=== PATIENT | female | born 1960 | race Caucasian/White ===

== ENCOUNTER 2017-08-08 11:32 | Inpatient (IN) | payer MEDICARE, MEDICAID ==
[2017-08-07 11:40] VITALS: BMI 18.3
[2017-08-08] MEDS ORDERED: Fentanyl 100 MCG/2 ML VIAL ONE ×2 (13:29→15:04)
[2017-08-08] MEDS ORDERED: CEFAZOLIN/Water 2 GM/20 ML SYRINGE ONE (13:32)
[2017-08-08] MEDS ORDERED: Propofol 200 MG/20 ML VIAL ONE (13:48)
[2017-08-08] MEDS ORDERED: Lidocaine 1% PF 5 ML VIAL ONE (13:48)
[2017-08-08] MEDS ORDERED: ePHEDrine/0.9% NaCl/PF SYRINGE 50 mg/10 ml ONE (13:48)
[2017-08-08] MEDS ORDERED: Ondansetron HCl/PF 4 MG/2 ML Vial IVP PRN (14:56)
[2017-08-08] MEDS ORDERED: Promethazine HCl 25 MG/ML VIAL SLOW IVP PRN (14:56)
[2017-08-08] MEDS ORDERED: Promethazine HCl 25 MG/ML VIAL IM PRN (14:56)
[2017-08-08] MEDS ORDERED: hydrOXYzine 25 MG TAB PO PRN (16:06)
[2017-08-08] MEDS: ALPRAZolam 0.5 MG TAB PO SCH (17:44)
[2017-08-08] MEDS: Sodium Chloride 0.9% 1,000 ML IV SCH ×2 (17:44)
[2017-08-08] MEDS: HYDROcodone/Acetaminophen 10/325 mg Tablet PO SCH ×2 (17:44→23:03)
--- NOTE | 2017-08-08 17:48 | OP ---
DATE OF PROCEDURE: 08/08/2017 GI ENDOSCOPY NOTE SURGEON: Bang Fernandez M.D. FRONT DESK AUXILIARY SURGEON: None. PROCEDURE: Esophagogastroduodenoscopy with percutaneous endoscopic gastrostomy placement and J tube extension placement. INDICATIONS: 1. Gastroparesis. 2. Weight loss. 3. Vomiting. MEDICATIONS: Ancef 2 grams IV for keena-procedural prophylaxis. MEDICATIONS: See anesthesia record. FINDINGS: After discussion of the risks, benefits and alternatives of the procedure, informed conse nt was obtained and witnessed. Pre-endoscopic cardiopulmonary examination was satisfactory. Timeou t was performed before sedation was achieved. Sedation was achieved with title i instructional assistant in e endoscopy unit. A Pentax adult upper endoscope was placed into the oropharynx and passed through the cricopharyngeus under direct visualization. The esophageal mucosa appeared normal throughout wi th a normal-appearing Z-line. The endoscope was advanced into the stomach. Forward and retroflexed views of the entire gastric mucosa were obtained. The gastric mucosa appeared normal. The endosco pe was then passed through the pylorus and into the first and second portions of the duodenum which appeared normal. The endoscope was then withdrawn back into the gastric lumen and a suitable site f or PEG placement was found in the left upper quadrant using 1:1 pressure and transillumination metho d. At this point, the site was marked, then it was prepped and draped in sterile fashion. It was a nesthetized with subcutaneous lidocaine. A 1 cm vertical incision was made at the site and then the introducer needle and catheter were introduced transcutaneously into the gastric lumen. The cathet er was grasped via snare through the endoscope. The wire was placed through the catheter and graspe d by the snare and then withdrawn out of the mouth. A 20-Eritrean traction PEG tube was affixed to e wire and then pulled through into place in the standard fashion without difficulty. The external bumper clamp and ports were then affixed to the tube. At this point, an 8.5 Eritrean J-extension was passed through the main portal of the PEG tube. A Pentax adult colonoscope was used to re-intubate the patient. A rat tooth forceps was used to drag the jejunal tube down about 30 cm past the pyloru s into what as the proximal jejunum and the splenic clip was used to clip the suture wire at the end of the tube in place in the proximal jejunum. The colonoscope was then completely removed without incident and the procedure was complete. The patient tolerated the procedure well. There were no i mmediate post-procedure complications. IMPRESSION: Successful esophagogastroduodenoscopy with percutaneous endoscopic gastrostomy placemen t and placement of J tube extension, external bumper at 3 cm. RECOMMENDATIONS: Admit for overnight observation, dietitian consultation, and PEG tube care landen loya
[2017-08-08] MEDS: PROVENTIL INHALER 6.7 G (200 INHALATIONS) INH SCH (18:13)
--- NOTE | 2017-08-08 22:14 | HP ---
REASON FOR ADMISSION: Overnight observation following PEG tube placement with J extension. HISTORY OF PRESENT ILLNESS: Sarah Webb is a 56-year-old woman whom I have been following [facility]. I met her in 2014 for the workup of weight loss, diarrhea, nausea, vomiting, and abdomina l pain. At that time in April 2015, she was found to have moderate gastritis and a gastric ulcer in the antrum with biopsies positive for H. pylori gastritis. We successfully eradicated H. pylori and by followup EGD in 06/2015. EGD was normal and biopsies were negative for H. pylori. However, she continues to have unchanged epigastric pain over the past couple of years off and on. She has had worsening symptoms of continued abdominal pain and vomiting, and weight loss. We repeated EGD in and this showed a moderate amount of retained food in the stomach, but normal gastric mucosa. We ordered a gastric emptying scan, but she was unable to tolerate it at that time. She was hospit alized in late November and early December here with continued weight loss and vomiting. She was seen by Dr. Patrick. CTA, stool studies, gastrin level, and 5-HIAA were all normal at that time. In [facility], we had been trialing her on Reglan, but she was taken off at that time due to what appears to h ave been the start of Tardive dyskinesia. Those symptoms thankfully resolved after discontinuing th e Reglan, but she has not been able to be on any other therapy for gastroparesis. More recently, I sent her down for a second opinion at [facility] with Dr. Luis. Dr. Luis agreed with diagnosis of gastroparesis and actually was able to obtain a formal gastric emptying milagros dy, which was markedly abnormal. Dr. Luis recommended that the patient have placement of a PEG tub e preventing with J extension for feeds. The patient was unable to get this done. She has been rudi k and forth between here and [place], but she has finely back here in town and was ready to get t his done, so she presented for PEG tube placement today. PEG placement with J extension was performed earlier today and was successful with no complications. The patient is now being admitted for overnight observation and dietitian consultation as well as teaching over care of the PEG tube. REVIEW OF SYSTEMS: Full review of systems including constitutional, head, eyes, ears, nose, throat, GI, , cardiovascular, respiratory, musculoskeletal, and neurologic systems is negative except as noted in the HPI. PAST MEDICAL HISTORY: COPD, depression/anxiety, TIA, hysterectomy, back surgery, cholecystectomy in 1978 for gallstones, tobacco abuse, gastroparesis, H. pylori gastritis successfully treated in 2014 . ALLERGIES: ACETAMINOPHEN, BACITRACIN, CODEINE, DOXYCYCLINE, DIPHENHYDRAMINE, HYDROCODONE, HYDROCORT ISONE, IBUPROFEN, LATEX, IODINE, NEOMYCIN, and POLYMYXIN B. MEDICATIONS: Alprazolam 0.5 mg q.6 hours, hydrocodone/acetaminophen 10/325 mg 1 tablet q.i.d., hydr oxyzine 25 mg p.o. t.i.d. p.r.n., albuterol inhaler q.i.d., omeprazole 40 mg daily, buspirone 15 mg b.i.d., atorvastatin 40 mg p.o. at bedtime, gabapentin 300 mg t.i.d., aspirin 81 mg daily, chlorprom azine 25 mg p.o. t.i.d., varenicline tartrate 1 mg p.o. b.i.d., Flovent 50 mcg inhaled daily. Earli er today she received 2 grams of IV Ancef as periprocedural prophylaxis for PEG tube placement. SOCIAL HISTORY: The patient is trying to quit smoking. No alcohol abuse. FAMILY HISTORY: Noncontributory. PHYSICAL EXAMINATION: GENERAL: Cachectic 56-year-old woman lying in bed comfortably after PEG tube placement, in no acute distress. SKIN: No jaundice, no rashes were palpable. EYES: No scleral icterus. Extraocular movements are intact. ENT: Mucous membranes moist, no oral lesions. LYMPH: No submandibular or supraclavicular lymphadenopathy. THYROID: Nontender to palpation. HEART: Regular rate and rhythm. LUNGS: Clear to auscultation bilaterally. ABDOMEN: Flat. Bowel sounds present. New PEG tube is in place, site appears good nontender to pal pation, no bleeding or oozing from the PEG site. EXTREMITIES: No peripheral edema. VESSELS: Radial pulses 2+ bilaterally. NEUROLOGICAL: Cranial nerves II-XII intact bilaterally. No focal deficits. ASSESSMENT AND PLAN: 1. Gastroparesis, now status post placement of PEG tube with J extension earlier today. 2. Weight loss, secondary to gastroparesis. 3. Vomiting, secondary to gastroparesis. We have ordered dietitian consultation for their assistan ce in recommendations on feeding formulations. The J extension will need to be flushed frequently t o keep her from getting clogged. We will combine tomorrow to check on PEG tube placement. Hopefull y, be able to discharge tomorrow.
[2017-08-08] MEDS: Varenicline Tartrate 0.5 MG TAB PO SCH (22:53)
[2017-08-08] MEDS: chlorproMAZINE HCl 25 MG TAB PO SCH (22:55)
[2017-08-08] MEDS: Gabapentin 300 MG CAP PO SCH (22:55)
[2017-08-08] MEDS: busPIRone HCl 10 MG TAB PO SCH (22:55)
[2017-08-08] MEDS: Atorvastatin Calcium 40 MG TAB PO SCH (22:55)
[2017-08-09] MEDS: ALPRAZolam 0.5 MG TAB PO SCH ×4 (00:07→18:20)
[2017-08-09] MEDS: Sodium Chloride 0.9% 1,000 ML IV SCH ×4 (06:16→20:38)
[2017-08-09] MEDS ORDERED: Fluticasone Propionate HFA 44 MCG AER INH SCH (07:00)
[2017-08-09] MEDS: PROVENTIL INHALER 6.7 G (200 INHALATIONS) INH SCH ×4 (07:48→18:42)
[2017-08-09] MEDS: Mometasone 100 MCG HFA INHALER INH SCH ×2 (07:50→18:43)
[2017-08-09] MEDS: Varenicline Tartrate 0.5 MG TAB PO SCH ×2 (09:12→20:37)
[2017-08-09] MEDS: chlorproMAZINE HCl 25 MG TAB PO SCH ×3 (09:12→20:36)
[2017-08-09] MEDS: HYDROcodone/Acetaminophen 10/325 mg Tablet PO SCH ×4 (09:12→20:37)
[2017-08-09] MEDS: Gabapentin 300 MG CAP PO SCH ×3 (09:12→20:36)
[2017-08-09] MEDS: busPIRone HCl 10 MG TAB PO SCH ×2 (09:12→20:35)
--- NOTE | 2017-08-09 15:44 | PRG ---
DATE OF SERVICE: 08/09/2017 SUBJECTIVE: Ms. Webb is feeling pretty well. No pain to the PEG tube site, no significant bleed ing or drainage from the PEG site. She was seen by a dietitian earlier today and recommendations fo r tube feeds made. It was recommended that tube feeds be started continuously at 20 mL per hour, an d advance to 50 mL per hour goal rate. These are just now been started. Ms. Webb has no complai nts. She is tolerating clear liquids just fine. PHYSICAL EXAMINATION: VITAL SIGNS: Temperature 98.3, pulse 60, blood pressure 105/68, 96% oxygen saturation on room air. GENERAL: No acute distress. HEART: Regular rate and rhythm. LUNGS: Clear to auscultation bilaterally. ABDOMEN: Soft and nontender to palpation. PEG site looks good. Some mild oozing which is way down from the PEG site. EXTREMITIES: No peripheral edema. ASSESSMENT AND PLAN: 1. Gastroparesis. 2. Weight loss. 3. Status post percutaneous endoscopic gastrostomy tube placement with a jejunal extension without complication yesterday on 08/08/2017. We will follow dietary recommendations on tube feeds and grad ual advancement. The patient will have tube feeds advanced overnight. Anticipate she will be able to be discharged home tomorrow.
[2017-08-09] MEDS: Atorvastatin Calcium 40 MG TAB PO SCH (20:35)
[2017-08-10] MEDS: ALPRAZolam 0.5 MG TAB PO SCH ×5 (00:05→23:19)
[2017-08-10] MEDS: PROVENTIL INHALER 6.7 G (200 INHALATIONS) INH SCH ×4 (07:05→19:24)
[2017-08-10] MEDS: Mometasone 100 MCG HFA INHALER INH SCH ×2 (07:07→19:26)
[2017-08-10] MEDS: chlorproMAZINE HCl 25 MG TAB PO SCH ×3 (09:26→21:34)
[2017-08-10] MEDS: Varenicline Tartrate 0.5 MG TAB PO SCH ×2 (09:26→21:35)
[2017-08-10] MEDS: Gabapentin 300 MG CAP PO SCH ×3 (09:26→21:35)
[2017-08-10] MEDS: busPIRone HCl 10 MG TAB PO SCH ×2 (09:26→21:34)
[2017-08-10] MEDS: HYDROcodone/Acetaminophen 10/325 mg Tablet PO SCH ×5 (09:27→21:35)
[2017-08-10] MEDS: Sodium Chloride 0.9% 1,000 ML IV SCH ×4 (12:18→23:20)
--- NOTE | 2017-08-10 15:19 | PRG ---
DATE OF SERVICE: 08/10/2017 SUBJECTIVE: Ms. Webb is doing fine. No nausea or vomiting. Abdominal pain is minimal. No dis comfort at the PEG site. She is tolerating the tube feeds now at 50 mL per hour without difficulty. OBJECTIVE: VITAL SIGNS: Temperature 97.8, pulse 75, blood pressure 90/56, 96% oxygen saturation on room air. GENERAL: No acute distress. HEART: Regular rate and rhythm. LUNGS: Clear to auscultation bilaterally. ABDOMEN: Flat, nontender to palpation. PEG site looks good. EXTREMITIES: No peripheral edema. ASSESSMENT AND PLAN: 1. Gastroparesis, status post PEG tube placement with J extension 2 days ago on 08/08/2017. 2. Weight loss secondary to gastroparesis. 3. Vomiting secondary to gastroparesis, stable. Ms. Webb is tolerating the Jevity 1.5 at 50 mL per hour. I would really like her to be able to do bolus feeds at home, so she is not tied to a pum p, and I think she will tolerate this just fine. I have re-written tube feed ordered for bolus feed s 1 can of Jevity 1.5 three times per day. We will see how she tolerates this. There are some logi stical issues with discharging her prior to arrangements being made for tube feeding supplies, etc. which can evidently only happened on Saturday, so probably plan to discharge her on Saturday.
[2017-08-10] MEDS: Enoxaparin Sodium 40 MG/0.4 ML SYRINGE SC SCH (21:34)
[2017-08-10] MEDS: Atorvastatin Calcium 40 MG TAB PO SCH (21:34)
[2017-08-11] MEDS: ALPRAZolam 0.5 MG TAB PO SCH ×3 (05:50→17:52)
[2017-08-11] MEDS: PROVENTIL INHALER 6.7 G (200 INHALATIONS) INH SCH ×4 (07:13→18:26)
[2017-08-11] MEDS: Mometasone 100 MCG HFA INHALER INH SCH ×2 (07:15→18:28)
[2017-08-11] MEDS: chlorproMAZINE HCl 25 MG TAB PO SCH ×3 (08:39→20:58)
[2017-08-11] MEDS: Gabapentin 300 MG CAP PO SCH ×3 (08:40→21:00)
[2017-08-11] MEDS: busPIRone HCl 10 MG TAB PO SCH ×2 (08:40→20:56)
[2017-08-11] MEDS: Varenicline Tartrate 0.5 MG TAB PO SCH ×2 (08:40→20:58)
[2017-08-11] MEDS: HYDROcodone/Acetaminophen 10/325 mg Tablet PO SCH ×4 (08:41→20:59)
[2017-08-11] MEDS: Sodium Chloride 0.9% 1,000 ML IV SCH ×2 (11:35)
[2017-08-11] MEDS ORDERED: Ondansetron HCl/PF 4 MG/2 ML Vial SLOW IVP PRN (14:55)
[2017-08-11] MEDS: Atorvastatin Calcium 40 MG TAB PO SCH (20:56)
[2017-08-11] MEDS: Enoxaparin Sodium 40 MG/0.4 ML SYRINGE SC SCH (21:00)
--- NOTE | 2017-08-11 21:35 | PRG ---
DATE OF SERVICE: 08/11/2017 SUBJECTIVE: Ms. Webb is feeling okay. Earlier today, we trialed bolus tube feed of whole can of Jevity 1.5. With this, she says she got acutely nauseated. She had had some soup around the same time and she ended up throwing up some of that. She is currently pain free and nausea free again. OBJECTIVE: VITAL SIGNS: Temperature 97.9, pulse 76, blood pressure 99/61, 97% oxygen saturation on room air. GENERAL: No acute distress. HEART: Regular rate and rhythm. LUNGS: Clear to auscultation bilaterally. ABDOMEN: Soft and nontender to palpation. PEG site looks good. EXTREMITIES: No peripheral edema. ASSESSMENT AND PLAN: 1. Gastroparesis, status post PEG tube placement with J extension 3 days ago on 08/08/2017. 2. Weight loss secondary to gastroparesis. 3. Vomiting secondary to gastroparesis, stable. I have asked the nurse to go ahead and just admini ster a half a can of Jevity for her next scheduled bolus feeding. We will see how she tolerates kari t. She is not going to need to meet all of her caloric needs with tube feeds as she is still able t o take in food by mouth. Ideally, she would be able to get the equivalent of 3 cans per day. Anticipate discharge from the hospital tomorrow.
[2017-08-12] MEDS: Sodium Chloride 0.9% 1,000 ML IV SCH ×4 (00:19→14:43)
[2017-08-12] MEDS: ALPRAZolam 0.5 MG TAB PO SCH ×4 (00:30→17:50)
[2017-08-12] MEDS: Mometasone 100 MCG HFA INHALER INH SCH ×2 (06:56→18:37)
[2017-08-12] MEDS: PROVENTIL INHALER 6.7 G (200 INHALATIONS) INH SCH ×4 (06:56→18:34)
[2017-08-12] MEDS: Gabapentin 300 MG CAP PO SCH ×2 (08:37→15:23)
[2017-08-12] MEDS: HYDROcodone/Acetaminophen 10/325 mg Tablet PO SCH ×3 (08:37→17:50)
[2017-08-12] MEDS: busPIRone HCl 10 MG TAB PO SCH (08:37)
[2017-08-12] MEDS: Varenicline Tartrate 0.5 MG TAB PO SCH (08:38)
[2017-08-12] MEDS: chlorproMAZINE HCl 25 MG TAB PO SCH ×2 (08:42→15:23)
--- NOTE | 2017-08-12 11:35 | PRG ---
DATE OF SERVICE: 08/12/2017 SUBJECTIVE: Ms. Webb has not really been able to tolerate bolus feeds through her jejunostomy tu be. She gets acutely nauseated and had some vomiting with attempts at this late yesterday. She is able to tolerate continuous feeds at 50 mL per hour just fine. She is desiring to go home today. S he has no other complaints. OBJECTIVE: VITAL SIGNS: Temperature 98.0, pulse 75, blood pressure 99/64, 97% oxygen saturation on room air. GENERAL: In no acute distress. HEART: Regular rate and rhythm. LUNGS: Clear to auscultation bilaterally. ABDOMEN: Flat and nontender. PEG site looks good. EXTREMITIES: No peripheral edema. ASSESSMENT AND PLAN: 1. Gastroparesis, status post placement of PEG tube with J extension on 08/12/2017. 2. Weight loss, secondary to severe gastroparesis. 3. Nausea and vomiting, secondary to severe gastroparesis. 4. Malnutrition. Ms. Bonds seems to be able to tolerate continuous tube feeds just fine at 50 mL per hour, but has n ot tolerated the bolus feedings. I think the best plan for her would be to have continuous feedings through the night at 50 mL per hour. She is really not able to reliably tolerate oral intake, cert ainly not meet all of her nutritional needs that way, so it is going to be necessary to continue the continuous tube feeds. That being said, as her symptoms do wax and wane somewhat I do want her to continue with careful oral intake on those days that she feels she can handle it. We will plan for hospital discharge today. Follow up in our clinic in the next 1-2 weeks. I instru cted her on the venting port for the gastrostomy tube, which will hopefully be able to palliate her symptoms as needed. Also, instructed her to make sure she is flushing the jejunostomy tube regularl y with 30 mL of water before and after feeds and a couple of other times throughout the day.
--- NOTE | 2017-08-12 14:32 | PQF ---
CLINICAL DOCUMENTATION IMPROVEMENT CLARIFICATION FORM: ICD-10 Updated PLEASE DO AN ADDENDUM TO THE PROGRESS NOTE WITH ANY DOCUMENTATION UPDATES OR ADDITIONS AND CARRY THROUGH TO DC SUMMARY. THANK YOU. Date: 08/12/17 ATTN: DR. GIVENS Please exercise your independent, professional judgment in responding to the clarification form. Clinical indicators are provided on the bottom of this form for your review Please check appropriate box(s): [ ] Protein Calorie Malnutrition: [ ] Mild [x ] Moderate [ ] Severe [ ] Other Malnutrition (please specify) __ [ ] Underweight without malnutrition [ ] Cachexia [ ] Other diagnosis [ ] Unable to determine In addition, please specify: Present on Admission (POA): [ x ] Yes [ ] No [ ] Unable to determine CLINICAL INDICATORS - SIGNS / SYMPTOMS / LABS PROGRESS NOTE 08/12: "WEIGHT LOSS SECONDARY TO SEVERE GASTROPARESIS" DIETARY NOTE 08/09: "SHE REPORTS WEIGHT LOSS FROM ~120'S OVER THE PAST 6 MONTHS AND ~130'S OVER THE PAST 1 YEAR. SHE REPORTS VOMITING WITH ALL PO INTAKE, EVEN LIQUIDS." "KCAL AND PROTEIN REQUIREMENTS NOT MET." "CLAVICULAR MUSCLE WASTING NOTED" BMI 18.3 *NO ALBUMIN AVAILABLE" RISKS: SEVERE GASTROPARESIS TREATMENT: PEG PLACEMENT NUTRITIONAL SUPPLEMENTS PER TUBE FEEDING (This form is maintained as a part of the permanent medical record) 2014 [employer] All Rights Reserved [email or web address] Office: [phone] [facility]ATRIC CENTERAle
[2017-08-12 16:40] VITALS: BP 105/63; TEMP 97.6
== END 2017-08-12 19:20 | disposition home or self-care (01) | DRG 392 ==
LOC: SDC 11:32 → SURG A 14:56 → OBSVTOIN 08-11 12:33
PROVIDERS: ADMIT Internal Medicine; ATTEND Internal Medicine
PROC: 0DH63UZ Insertion of Feeding Device into Stomach, Percutaneous Approach (ICD-10-PCS; principal; 2017-08-11)
DX: K31.84 Gastroparesis (principal); E44.0 Moderate protein-calorie malnutrition; Z68.1 Body mass index [BMI] 19.9 or less, adult; F32.9 Major depressive disorder, single episode, unspecified; R11.2 Nausea with vomiting, unspecified; J44.9 Chronic obstructive pulmonary disease, unspecified; F41.9 Anxiety disorder, unspecified; F17.210 Nicotine dependence, cigarettes, uncomplicated; Z86.73 Personal history of transient ischemic attack (TIA), and cerebral infarction without residual deficits
CPT/HCPCS: 94664; 96374; J1650; J2001; J2704; J3010; Q0161

== ENCOUNTER 2017-09-17 12:44 | Day surgery (SDC) | payer MEDICARE, MEDICAID ==
[2017-09-16 15:48] VITALS: BMI 18.3
[2017-09-17] MEDS ORDERED: PHENYLEPHRINE-NS 100 MCG/ML 10 ML SYRINGE ONE (14:27)
[2017-09-17] MEDS ORDERED: Lidocaine 1% PF 5 ML VIAL ONE (14:27)
[2017-09-17] MEDS ORDERED: Propofol 200 MG/20 ML VIAL ONE (14:27)
--- NOTE | 2017-09-17 21:56 | OP ---
DATE OF PROCEDURE: 09/17/2017 SURGEON: Bang Fernandez M.D. AUTOMOBILE SERVICE STATION ATTENDANT SURGEON: None. PROCEDURE: Esophagogastroduodenoscopy, diagnostic. INDICATIONS: 1. Nausea and vomiting. 2. Abdominal pain. 3. Gastroparesis. 4. Possible PEG tube malfunction. The patient has a PEG tube with jejunal extension recently placed , now complaining of abdominal pain and malpositioning of the J tube. MEDICATIONS: See anesthesia record. FINDINGS: After discussion of the risks, benefits and alternatives of the procedure, informed consen t was obtained and witnessed. Pre-endoscopic cardiopulmonary examination was satisfactory. Timeout was performed before sedation was achieved. Sedation was achieved with anesthesia assistance in the endoscopy unit. A Pentax adult upper endoscope was placed into the oropharynx and passed through the cricopharyngeus under direct visualization. The esophageal mucosa appeared normal throughout with a normal-appearing Z-line. The endoscope was advanced forward into the stomach. Forward and retrofle xed views of the entire gastric mucosa were obtained. The gastric mucosa appeared normal. The inter nal bumper of the patient's PEG tube appears in good position. The underlying mucosa was examined. There is no associated mucosal abnormality, no associated ulceration. The jejunal extension was seen coming in through the internal bumper and does indeed coiled within the stomach. However, the jejun al extension does pass beyond the pylorus. The endoscope was passed beyond the pylorus alongside the jejunal extension and into the third portion of the duodenum where the tip of the jejunal tube was f ound to be lying. This has indeed come back a bit from when the jejunal extension was placed. The s uture affixed to the end of the J-tube appears to have broken and no longer is a loop but remains aff ixed to the tube. I used a Hemoclip to clip the suture in place in the third portion of the duodenum . The upper endoscope was then completely withdrawn and the patient allowed to recover. The patient tolerated the procedure well. There were no immediate post-procedure complications. IMPRESSION: 1. Internal PEG bumper looks good, with no associated mucosal abnormality or ulceration. 2. Jejunal extension tube coiled within the stomach, but still passing through the pylorus and into the third portion of the duodenum. Clipped in place. 3. Otherwise, normal esophagogastroduodenoscopy. RECOMMENDATIONS: 1. Resume tube feedings as before. 2. Resume daily PPI. 3. Follow up with primary care physician for urinary complaints.
--- NOTE | 2017-09-18 00:43 | CON ---
DATE OF CONSULTATION: 09/17/2017 CONSULTING PHYSICIAN: Dr. Bang Fernandez. CONSULTED PHYSICIAN: Dr. Bony Aponte. REASON FOR CONSULTATION: Urinary retention. HISTORY OF PRESENT ILLNESS: Ms. Webb is a 56-year-old white female who is coming in today for an EGD secondary to PEG tube placement with jejunal extension. She underwent her procedure with Dr. Morteza pryor, which went uneventfully. However, the patient was not able to urinate after the procedure. On di scussing with the patient, she states that she has had a long history of being unable to urinate sinc e her original PEG tube placement and stomach issues which began around 2014. She is able to urinate some, but has a great deal of difficulty with hesitancy, weak stream and feelings of incomplete empt padmini. She denies histories of recurrent urinary tract infections, hematuria, previous urologic surge rc or trauma to the region. She has a history of nephrolithiasis many years ago and has a histo ry of infections while she was , but nothing recent. ALLERGIES: 1. TYLENOL. 2. BACITRACIN. 3. CODEINE. 4. DOXYCYCLINE. 5. DIPHENHYDRAMINE. 6. HYDROCODONE. 7. HYDROCORTISONE. 8. IBUPROFEN. 9. LATEX. 10. IODINE. 11. NEOMYCIN. 12. POLYMYXIN. PAST MEDICAL HISTORY: 1. COPD. 2. Depression with anxiety. 3. Transient ischemic attack. 4. Hysterectomy. 5. Back surgery. 6. Cholecystectomy. 7. Gastroparesis. 8. Helicobacter pylori gastritis. PAST SURGICAL HISTORY: PEG tube placement and cholecystectomy. HOME MEDICATIONS: 1. Alprazolam. 2. [place]. 3. Hydroxyzine. 4. Albuterol. 5. Protonix. 6. BuSpar. 7. Atorvastatin. 8. Neurontin. 9. Aspirin. 10. Chlorpromazine. 11. Varenicline. 12. Flovent. FAMILY HISTORY: Noncontributory. SOCIAL HISTORY: The patient is currently trying to quit smoking. She denies alcohol abuse or illici t drug use. REVIEW OF SYSTEMS: A 12-point review of systems is unremarkable other than what was commented on the HPI. Specifically, she does have the GI issues with recent history of constipation and diarrhea. S he otherwise denies any symptoms of urinary tract infections, fevers or chills or malaise. She has t he above-mentioned urinary problems. PHYSICAL EXAMINATION: VITAL SIGNS: Temperature 99.2, pulse 96, respirations 20, blood pressure 103/69, saturation 98% on r oom air. GENERAL: No apparent distress, communicative and alert. Appears stated age. HEENT: Normocephalic, atraumatic. Sclerae are nonicteric. Pupils are symmetric and round. Trachea midline. CARDIOVASCULAR: Regular rate and rhythm. Normal S1 and S2. Symmetric pulses. CHEST: Clear anteriorly. No increased work of breathing. Symmetric expansion of lungs. ABDOMEN: Soft, nontender, nondistended. PEG tube is in place. No organomegaly. No rebound or guar ding tenderness. SKIN: Warm, dry. No rashes or lesions. Good turgor. EXTREMITIES: No clubbing, cyanosis or edema. MUSCULOSKELETAL: No joint deformities or joint erythema noted. Full range of motion. NEUROLOGIC: Cranial nerves II-XII appear grossly intact. No focal motor or sensory deficits identif ied. PROCEDURE: The nursing staff had a significant amount of difficulty inserting a Cadena catheter at my request. I came in and had the patient going to the laboring type position with her knees to her est, this opened up her urethra much easier to identify and we were able to pass the catheter into th e urethra with return of clear urine, 500 mL of urine was drained, 10 mL of sterile water placed into the balloon. This was secured to the patient's leg with a StatLock. ASSESSMENT AND PLAN: A 56-year-old white female with urinary retention of unexplained etiology. It is possible that she may have a neurologic source of why she is not able to urinate properly, possibl y secondary to previous pelvic surgery or possibly due to some other condition which is not yet expla ined. I would think she probably will require urodynamics to assess whether or not she has an obstru ctive etiology or has a neurogenic type bladder. She should have her constipation managed aggressive ly to minimize her risk for urinary problems in the future as constipation can greatly exacerbate uri nary retention. We will plan to send her home today with her catheter to a leg bag and she can follo w up with me in the office next week at which time we will plan for a voiding trial and possibly set her up for urodynamics. I will cover her with 24 hours of Cipro to prevent urinary tract infection d ue to the multiple attempts of the catheter placement.
== END 2017-09-17 20:00 | disposition home or self-care (01) ==
LOC: ENDO/OP 12:44
PROVIDERS: ATTEND Internal Medicine
PROC: 0DJ08ZZ Inspection of Upper Intestinal Tract, Via Natural or Artificial Opening Endoscopic (ICD-10-PCS; principal; 2017-09-17)
DX: K94.23 Gastrostomy malfunction (principal); K31.84 Gastroparesis; J44.9 Chronic obstructive pulmonary disease, unspecified; F17.200 Nicotine dependence, unspecified, uncomplicated; Z91.041 Radiographic dye allergy status; Z91.040 Latex allergy status; Z88.1 Allergy status to other antibiotic agents; Z88.5 Allergy status to narcotic agent; Z88.6 Allergy status to analgesic agent; Z88.8 Allergy status to other drugs, medicaments and biological substances; Z98.1 Arthrodesis status; Z90.710 Acquired absence of both cervix and uterus; Z90.49 Acquired absence of other specified parts of digestive tract; Z98.890 Other specified postprocedural states; Z86.73 Personal history of transient ischemic attack (TIA), and cerebral infarction without residual deficits
CPT/HCPCS: J2001; J2704

== ENCOUNTER 2017-10-23 10:22 | Day surgery (SDC) | payer MEDICARE, MEDICAID ==
[2017-10-22 13:26] VITALS: BMI 18.3
[2017-10-23] MEDS ORDERED: CEFAZOLIN/Water 2 GM/20 ML SYRINGE ONE (10:55)
[2017-10-23] MEDS ORDERED: Ketorolac Tromethamine 30 MG/ML VIAL ONE (12:33)
[2017-10-23] MEDS ORDERED: Propofol 200 MG/20 ML VIAL ONE (14:23)
[2017-10-23] MEDS ORDERED: Ondansetron HCl/PF 4 MG/2 ML Vial ONE (14:23)
[2017-10-23] MEDS ORDERED: Lidocaine 1% PF 5 ML VIAL ONE (14:23)
--- NOTE | 2017-10-23 14:28 | OP ---
DATE OF PROCEDURE: 10/23/2017 SURGEON: Bang Fernandez M.D. ADULT CARE PROVIDER SURGEON: None. PROCEDURE: Esophagogastroduodenoscopy with PEG tube revision and jejunostomy extension placement. INDICATION: 1. PEG tube malfunction, jejunal extension is clogged. 2. Gastroparesis. MEDICATIONS: 1. See Anesthesia record. 2. Ancef 2 grams IV as periprocedural prophylaxis. FINDINGS: After discussion of the risks, benefits, and alternatives of the procedure, informed consent was obtained and witnessed. Pre-endoscopic cardiopulmonary examination was satisfactory. Timeout was performed before sedation was achieved. Sedation was achieved with Anesthesia assistance in the endoscopy unit. The patient was placed in the supine position. A Pentax adult colonoscope was used for this procedure as jejunal extension placement was planned. The colonoscope was inserted into the mouth beyond the esophagus and into the stomach and first portion of the small intestine. Examination demonstrated no abnormalities. Her existing PEG tube was in good position with no abnormalities at the internal bumper site. Her jejunal extension was looped around in the fundus of the stomach with the tip of the jejunal extension in the gastric antrum. It was therefore decided to go ahead and proceed with PEG replacement. The existing 20-[place] PEG tube was removed by traction along with the clogged jejunal extension. The site was prepped and draped in a sterile fashion. We introduced the introducer needle and catheter through her existing PEG site without difficulty. The needle was removed and a wire was passed through the catheter. The wire was grasped with a snare through the endoscope without difficulty. The endoscope was then removed along with the wire through the mouth, then a new 24-[place] traction PEG tube was affixed to the wire and pulled through into position in the usual fashion without difficulty. The internal bumper was found to be in good position upon reexamination with the endoscope. The external bumper was placed at 3 cm. The clamp was affixed to the tube and the tube was then shortened. At this point, we proceeded with the next part of the procedure, which was placement of a jejunal extension, a 12-[place] jejunal extension tube was inserted through the PEG tube. We initially attempted to pull the J tube through the pylorus using a Resolution Hemoclip; however, the Hemoclip was unable to provide enough force to bring the tube down into the small bowel. The clip was removed and we utilized a rat tooth forceps to grasp the end of the jejunal tube. We were then able to advance the tip of the jejunal tube beyond the pylorus and well into the small bowel beyond the duodenum and into the proximal jejunum. Unfortunately, during all this process, the suture loop at the end of the jejunal tube was cut and subsequently fell off. We were therefore unable to clip the jejunal tube in place. However, with careful removal of the endoscope, we were able to completely withdraw the endoscope back into the gastric lumen without bringing the jejunal tube back. There was no fundic loop visualized. The J-extension appeared to be in proper position. At this point, the endoscope was completely removed and the patient allowed to recover. The patient tolerated the procedure well. There were no immediate post-procedure complications. IMPRESSION: 1. Successful placement of new 24-[place] traction PEG tube at the existing site , with external bumper at 3 cm. 2. Successful placement of a 12-[place] jejunal extension tube through the PEG tube, with tip located in the proximal jejunum. Unable to clip the jejunal extension in place due to broken suture. RECOMMENDATIONS: 1. Discharge home. 2. Resume tube feedings and flushes as before. 3. Follow up in clinic in the next 2-3 weeks. JD
== END 2017-10-23 13:40 | disposition home or self-care (01) ==
LOC: SDC 10:22
PROVIDERS: ATTEND Internal Medicine
PROC: 0DH63UZ Insertion of Feeding Device into Stomach, Percutaneous Approach (ICD-10-PCS; principal; 2017-10-23)
DX: K94.23 Gastrostomy malfunction (principal); K31.84 Gastroparesis; J44.9 Chronic obstructive pulmonary disease, unspecified; F41.9 Anxiety disorder, unspecified; F32.9 Major depressive disorder, single episode, unspecified; F17.210 Nicotine dependence, cigarettes, uncomplicated; Z86.73 Personal history of transient ischemic attack (TIA), and cerebral infarction without residual deficits; Z79.82 Long term (current) use of aspirin; Z79.899 Other long term (current) drug therapy; Z88.1 Allergy status to other antibiotic agents; Z88.8 Allergy status to other drugs, medicaments and biological substances; Z88.5 Allergy status to narcotic agent; Z91.048 Other nonmedicinal substance allergy status; Z91.040 Latex allergy status; Z91.041 Radiographic dye allergy status; Z98.1 Arthrodesis status; Z90.710 Acquired absence of both cervix and uterus; Z90.49 Acquired absence of other specified parts of digestive tract; Z90.722 Acquired absence of ovaries, bilateral; Z98.890 Other specified postprocedural states
CPT/HCPCS: 96374; J1885; J2001; J2405; J2704

== ENCOUNTER 2017-11-04 15:22 | Emergency (ER) | payer MEDICARE, MEDICAID ==
[2017-11-04 15:43] LABS: Bilirubin Negative (Negative); Blood, Urine Negative (Negative); Clarity CLEAR (Clear); Glucose, Urine (Dipstick) Negative (Negative); Leukocyte Negative (Negative); Nitrite Negative (Negative); Protein, Urine (Dipstick) Negative (Neg-Trace); Specific Gravity, Urine 1.012 (1.002-1.036); Urobilinogen 0.2 mg/dL (0.2-1.0); pH, Urine 7.5 (5.0-9.0)
[2017-11-04 16:13] LABS: #Basophils 0.1 thou/uL (0.0-0.2); #Eosinphils 0.2 thou/uL (0.0-0.7); #Lymphocytes 2.4 thou/uL (1.20-3.40); #Monocytes 0.6 thou/uL (0.11-0.59); #Neutrophils 3.4 thou/uL (1.40-6.50); %Basophils 0.8 % (0.0-1.0); %Eosinophils 3.1 % (0.0-10.0); %Lymphocytes 36.3 % (21.0-51.0); %Monocytes 8.3 % (0.0-10.0); %Neutrophils 51.4 % (42.0-75.0); Hemoglobin 12.3 g/dL (12.0-16.0); Mean Corpuscular HGB CONC 32.4 g/dL (32.0-36.0); Mean Corpuscular Hemoglobin 30.1 pg (27.0-31.0); Mean Corpuscular Volume 92.9 fl (81.0-99.0); Mean Platelet Volume 6.5 fL (7.4-10.4); Platelet Count 341 thou/uL (130-400); White Blood Cell (WBC) Count 6.6 thou/uL (4.8-10.8)
[2017-11-04 16:59] LABS: ALT (SGPT) 13 U/L (8-55); AST (SGOT) 18 U/L (5-34); Albumin 3.9 g/dL (3.5-5.0); Alkaline Phosphatase 59 U/L (40-150); Anion Gap 12 mmol/L (10-20); BUN (Urea Nitrogen) 14 mg/dL (9.8-20.1); Bilirubin, Total 0.2 mg/dL (0.2-1.2); Calc. Creatinine Clearance 0 mL/min (70-130); Calcium 9.2 mg/dL (7.8-10.44); Carbon Dioxide 26 mmol/L (22-29); Chloride 104 mmol/L (98-107); Estimated GFR-MDRD 77; Globulin 2.7 g/dL (2.4-3.5); Glucose 96 mg/dL (70-105); Potassium 4.3 mmol/L (3.5-5.1); Protein, Total 6.6 g/dL (6.0-8.3); Sodium 138 mmol/L (136-145)
--- NOTE | 2017-11-04 19:34 | RAD ---
PORTABLE CHEST: History: Cough. Comparison: 05-20-08 FINDINGS: Heart size and mediastinum are within normal limits. The lungs are clear of infiltrates. The bones ar e demineralized. Post-operative changes of the cervical spine are noted. Catheters are visualized in the abdomen. IMPRESSION: No active intrathoracic disease. POS: [facility]
== END 2017-11-04 19:48 | disposition home or self-care (01) ==
LOC: ERS 15:22
DX: R11.2 Nausea with vomiting, unspecified (principal); I25.2 Old myocardial infarction; J44.9 Chronic obstructive pulmonary disease, unspecified; F41.9 Anxiety disorder, unspecified; F32.9 Major depressive disorder, single episode, unspecified; F17.210 Nicotine dependence, cigarettes, uncomplicated; Z86.73 Personal history of transient ischemic attack (TIA), and cerebral infarction without residual deficits; Z87.01 Personal history of pneumonia (recurrent)
CPT/HCPCS: 36415; 71045; 80053; 81003; 85025; 87086; 96360